=== PATIENT | female | born 1995 | race Caucasian/White ===

== ENCOUNTER → 2018-02-17 | Outpatient (CLI) | payer OTHER ==
[~2018-02-17] MED LIST: ASMANEXPT IH
--- NOTE | 2018-02-17 14:40 | RADIOLOGY IMAGING REPORT ---
FACILITY: [facility] PATIENT NAME: Francine Powell : 1995 MR: [id number] V: [id number] EXAM DATE: ORDERING PHYSICIAN: KIMO BLANKENSHIP TECHNOLOGIST: Location: [facility] [place] Patient: Francine Powell : 1995 Visit/Account:[id number] Date of Sevice: 02/17/2018 ULTRASOUND THYROID HISTORY: Hypothyroidism on levothyroxine COMPARISON: None. FINDINGS: SIZE: Normal. Right lobe: 1.5 x 1.4 x 4.4 cm Left lobe: 0.9 x 1.2 x 4.0 cm Isthmus: 3 mm PARENCHYMA: Homogeneous. NODULES: Right lobe: * None discrete. Left lobe: * None discrete. Isthmus: * None discrete. VASCULARITY: Within normal limits. ADDITIONAL FINDINGS: None. IMPRESSION: Normal ultrasound appearance of the thyroid. No discrete thyroid nodules. Report Dictated By: Obie Jay at 02/17/2018 2:35 PM Report E-Signed By: Obie Jay at 02/17/2018 2:36 PM WSN:[id number]
== END ==
LOC: US 01:22
PROVIDERS: ATTEND Family Medicine
DX: E03.9 Hypothyroidism, unspecified (principal)
CPT/HCPCS: 76536

== ENCOUNTER → 2018-03-17 | Outpatient (CLI) | payer OTHER ==
--- NOTE | 2018-03-18 08:33 | RADIOLOGY IMAGING REPORT ---
FACILITY: [facility] [place] PATIENT NAME: LEONARDA BAIRES : [id number] MR: [id number] V: [id number] EXAM DATE: [id number] ORDERING PHYSICIAN: KIMO BLANKENSHIP TECHNOLOGIST: Sarah Meléndez RDMS PROCEDURE:US LEFT BREAST COMPLETE COMPARISON:None. INDICATIONS:Left breast mass FINDINGS: The patient's entire Left breast was scanned revealing no sonographic abnormality cystic or solid therefore clinical follow-up recommend for patient's palpable Left breast finding. DIAGNOSTIC CATEGORY 1--NEGATIVE. RECOMMENDATIONS: CLINICAL EVALUATION. IMPRESSION: BIRADS 1: Negative. No significant abnormality of the Left breast is seen sonographically therefore clinical follow-up recommended for patient's palpable findings. Dictated by: Ira Mills M.D. on 03/17/2018 at 15:57 Transcribed by: JANIA on 03/17/2018 at 16:10 Approved by: Ira Mills M.D. on 03/18/2018 at 8:32 [facility]
== END ==
LOC: RAD 03-06 04:24 → MAMO 02:06
PROVIDERS: ATTEND Family Medicine
DX: N63.20 Unspecified lump in the left breast, unspecified quadrant (principal)

== ENCOUNTER → 2018-11-26 | Outpatient (CLI) | payer OTHER ==
[~2018-11-26] MED LIST changes: +ALB18R INH; +FLU44R INH; +LEVO75TA73 PO
== END ==
LOC: LAB 09:57
PROVIDERS: ATTEND Student in an Organized Health Care Education/Training Program
DX: Z11.3 Encounter for screening for infections with a predominantly sexual mode of transmission (principal); Z11.8 Encounter for screening for other infectious and parasitic diseases
CPT/HCPCS: 87491; 87591